=== PATIENT | female | born 1960 | race African-American/Black ===

== ENCOUNTER 2021-02-11 12:14 | Emergency (ER) | payer BC ==
[2021-02-11] MEDS ORDERED: Dexamethasone 10 MG/ML VIAL ONE (13:17)
[2021-02-11] MEDS ORDERED: Morphine 4 MG/ML VIAL ONE (13:17)
[2021-02-11] MEDS ORDERED: Ketorolac Tromethamine 30 MG/ML VIAL ONE (13:18)
== END 2021-02-11 14:20 | disposition home or self-care (01) ==
LOC: CSHERS 12:14
DX: M25.552 Pain in left hip (principal); I10 Essential (primary) hypertension; E78.5 Hyperlipidemia, unspecified; E78.00 Pure hypercholesterolemia, unspecified; F17.210 Nicotine dependence, cigarettes, uncomplicated
CPT/HCPCS: 96372; J1100; J1885; J2270

== ENCOUNTER 2022-06-20 07:37 | Outpatient (CLI) | payer BC | END 2022-06-20 07:38 | disposition home or self-care (01) | LOC: CSHCT 07:37 | PROVIDERS: ATTEND Student in an Organized Health Care Education/Training Program | DX: K13.29 Other disturbances of oral epithelium, including tongue (principal); J34.9 Unspecified disorder of nose and nasal sinuses; R59.9 Enlarged lymph nodes, unspecified | CPT/HCPCS: 70491 ==

== ENCOUNTER 2023-01-14 14:59 | Outpatient (CLI) | payer BC | END 2023-01-14 15:00 | disposition home or self-care (01) | LOC: CSHMAMMO 14:59 | PROVIDERS: ATTEND Radiology Radiation Oncology | DX: Z12.31 Encounter for screening mammogram for malignant neoplasm of breast (principal); R92.1 Mammographic calcification found on diagnostic imaging of breast; Z80.3 Family history of malignant neoplasm of breast | CPT/HCPCS: 77063; 77067 ==

== ENCOUNTER 2023-01-15 09:00 | Outpatient (CLI) | payer BC | END 2023-01-15 09:01 | disposition home or self-care (01) | LOC: CSHMAMMO 09:00 | PROVIDERS: ATTEND Family Medicine | DX: R92.1 Mammographic calcification found on diagnostic imaging of breast (principal) | CPT/HCPCS: G0279 ==

== ENCOUNTER 2024-02-04 10:45 | Outpatient (CLI) | payer BC ==
[2024-02-04] MEDS ORDERED: MD-Gastroview 120 ML BOT ONE (11:00)
== END 2024-02-04 10:46 | disposition home or self-care (01) ==
LOC: CSHRAD 10:45
PROVIDERS: ATTEND Otolaryngology
DX: C32.1 Malignant neoplasm of supraglottis (principal); C32.9 Malignant neoplasm of larynx, unspecified
CPT/HCPCS: 74220